=== PATIENT | male | born 1980 | race Caucasian/White ===

== ENCOUNTER → 2019-11-19 13:21 | Outpatient (CLI) | payer BC, SELFPAY | PROVIDERS: PCP Family Medicine; Referring Provider Nurse Practitioner Primary Care; Visit Provider Nurse Practitioner Primary Care | DX: Z03.818 Encounter for observation for suspected exposure to other biological agents ruled out (principal) | CPT/HCPCS: 87635; 87804; G2023; U0004 ==

== ENCOUNTER 2022-10-07 14:26 | Emergency (ER) | payer BC, SELFPAY ==
[2022-10-07 14:29] VITALS: BP 142/104; PULSE 76; RESP 14; TEMP 36.1; O2SAT 98; BMI 23.8
--- NOTE | 2022-10-07 14:55 | EDS_ITS ---
HPI HPI - Psych History of Present Illness Chief Complaint: Mental Health Narrative Narrative: 41-year-old male with no psychiatric history presenting with psychosis. He was referred to the ER by his PCP. Apparently on Friday he was at a concert [id number] and admits to drinking a lot of alcohol and taking ecstasy. He states that on his way home from this concert he started hearing music come from the radio that was evil. He was trying to block it out. He states when he arrived at home and walked into the house he can still hear the music. Initially it was coming from his bathroom pipes. He states that as he would walk around he would hear the music in different places. He called his family over to see if they could hear the sound, but he states that every time they showed up the music would stop. Patient states that he woke up at about 2 in the morning and saw all 3 beings. He thought there were either aliens or evil beings. He became very scared, and turned on the lights and these disappeared. He states at some point he let them back and by turning off the lights. He had severe that they were going to do some sort of surgery on his back and he was going to bleed to . He states he jumped up out of bed in his underwear and ran to the police station. He said he was in fear for his life. He presents with his brother and his [id number] who states that this is not his typical behavior. At some point today he feels that the beings did some kind of gentle procedure and inserted some kind of device into his shoulder that went down to his hand and he believes that this was something used to control his hand. He has not lost control of his hand. He is too afraid to go home. Patient denies any current drug or alcohol use. He is not homicidal or suicidal. [facility] Medical History Arthritis Contact with and (suspected) exposure to other viral communicable diseases URI (upper respiratory infection) Home Medications NK 07/10/22 [History Last Taken Unknown] Allergy/AdvReac Type Severity Reaction Status Date / Time No Known Allergies Allergy Verified 10/07/22 14:29 Social History Smoking Status: Never smoker alcohol intake: current ROS ROS ED Constitutional Constitutional ED: Denies chills or fever(s) Eyes Eyes: Denies change in vision ENT ENT ED: Denies rhinorrhea Cardiovascular Cardiovascular: Denies chest pain or palpitations Respiratory/Chest Respiratory/Chest: Denies cough or dyspnea Gastrointestinal Gastrointestinal: Denies abdominal pain or constipation Genitourinary Genitourinary ED: Denies dysuria or hematuria Musculoskeletal Musculoskeletal: Denies arthralgias or back pain Neurologic Neurologic: Denies headache(s) or paresthesias Psychiatric Psychiatric: Reports anxiety and other Details: Auditory and visual hallucinations ; Denies suicidal ideation or suicidal thoughts Endocrine Endocrinology: Denies polydipsia EXAM Physical Exam Const Vital Signs: 10/07/22 14:29 10/07/22 18:09 Temperature 97 F L Temperature Source Temporal Pulse Rate 76 Respiratory Rate 14 16 Blood Pressure 142/104 H Blood Pressure Mean 116 Pulse Ox 98 Oxygen Delivery Method Room Air Positive well nourished General Appearance ED: irritable; Negative for pallor HEENT Reports moist mucous membranes normocephalic Resp normal respiratory effort and clear to auscultation bilaterally Cardio Rate: regular rate Rhythm: regular rhythm Neuro oriented x3 and CN's II-XII intact bilaterally Sensorium / Orientation: alert and oriented to person Motor Exam: strength 5/5 throughout Psych denies homicidal ideation and denies suicidal ideation Appearance: bizarre Attitude: paranoid Activity / Motor Behavior: appropriate eye contact, psychomotor agitation, fidgetting and restless Mood & Affect: anxious, irritable and fearful Thought Process: disorganized and flight of ideas Thought Content: hallucination(s) Positive for auditory and visual Memory / Cognition: memory grossly intact Insight: poor Judgement: poor Skin General Skin Exam: Negative for jaundice or pallor MDM MDM MDM Narrative Medical decision making narrative: Patient presenting with kin, audible and visual hallucinations, paranoia. He has no history of psychiatric disease. 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 He was at a concert this last weekend. He admits to doing ecstasy. His urine drug screen is negative. CBC is unremarkable. BMP is also normal. EtOH negative. Discussed with clinical social work therapist and both the patient and she believe he needs to be placed. I do agree. I do believe it would be unsafe for him to go home. Patient started to get agitated. I had to give him Geodon. Patient was accepted at [facility]. He is medically clear at this time. Impression: 1. Acute psychosis Lab Data Labs: Laboratory Results - last 24 hr 10/07/22 10/07/22 10/07/22 14:58 15:04 15:04 WBC 10.3 RBC 5.02 Hgb 15.3 Hct 44.3 MCV 88.2 MCH 30.5 MCHC 34.5 RDW Std Deviation 39.4 RDW Coeff of Aldair 12.2 Plt Count 231 MPV 9.8 Immature Gran % (Auto) 0.400 Neut % (Auto) 77.0 H Lymph % (Auto) 11.3 L Vermillion % (Auto) 10.6 H Eos % (Auto) 0.3 Baso % (Auto) 0.4 Absolute Neuts (auto) 8.0 H Absolute Lymphs (auto) 1.17 Nucleated RBC % 0 Sodium Potassium Chloride Carbon Dioxide Anion Gap BUN Creatinine Estim Creat Clear Calc Est GFR (MDRD) Af Amer Est GFR (MDRD) Non-Af BUN/Creatinine Ratio Glucose Calcium Total Bilirubin AST ALT Alkaline Phosphatase Total Protein Albumin Globulin Albumin/Globulin Ratio Urine Opiates Screen NEGATIVE Urine Methadone Screen NEGATIVE Ur Barbiturates Screen NEGATIVE Ur Phencyclidine Scrn NEGATIVE Ur Amphetamines Screen NEGATIVE MDMA (Ecstasy) Screen NEGATIVE U Benzodiazepines Scrn NEGATIVE Urine Cocaine Screen NEGATIVE U Cannabinoids Screen NEGATIVE Ur Drug Screen Comment Ethyl Alcohol < 3.0 10/07/22 15:04 WBC RBC Hgb Hct MCV MCH MCHC RDW Std Deviation RDW Coeff of Aldair Plt Count MPV Immature Gran % (Auto) Neut % (Auto) Lymph % (Auto) Vermillion % (Auto) Eos % (Auto) Baso % (Auto) Absolute Neuts (auto) Absolute Lymphs (auto) Nucleated RBC % Sodium 140 Potassium 3.4 L Chloride 110 H Carbon Dioxide 21.0 Anion Gap 9 BUN 14 Creatinine 0.90 Estim Creat Clear Calc 112.65 Est GFR (MDRD) Af Amer 120 Est GFR (MDRD) Non-Af 99 BUN/Creatinine Ratio 15.6 Glucose 127 H Calcium 9.5 Total Bilirubin 0.90 AST 86 H ALT 66 H Alkaline Phosphatase 68 Total Protein 8.0 Albumin 4.2 Globulin 3.8 Albumin/Globulin Ratio 1.1 Urine Opiates Screen Urine Methadone Screen Ur Barbiturates Screen Ur Phencyclidine Scrn Ur Amphetamines Screen MDMA (Ecstasy) Screen U Benzodiazepines Scrn Urine Cocaine Screen U Cannabinoids Screen Ur Drug Screen Comment Ethyl Alcohol Discharge Plan Triage Chief Complaint: Mental Health ED Provider: Elias Acosta Dx/Rx/DC Orders Prescriptions: No Action NK Primary Care Provider: Carl Abernathy Referrals: Carl Abernathy MD [Primary Care Provider] -
--- NOTE | 2022-10-07 15:08 | ED.RN ---
Left message for Enzo [facility] [place]. Patient requesting to have someone pray with him.
[2022-10-07 15:17] LABS: Absolute Lymphocyte Count 1.17 X10^3/uL (0.83-4.51); Basophil# 0.04 X10^3/uL; Basophil% 0.4 % (0-1); Eosinophil# 0.03 X10^3/uL; Eosinophils% 0.3 % (0-5); Hematocrit 44.3 % (40-54); Hemoglobin 15.3 g/dL (13.0-16.5); Lymphocyte # 1.17 X10^3/ul (0.83-4.51); Lymphocyte % 11.3 % (19-41); Mean Corp Hgb Conc 34.5 g/dL (32-36); Mean Corpuscular Hgb 30.5 pg (27.0-32.0); Mean Corpuscular Volume 88.2 fL (80-94); Mean Platelet Vol. 9.8 fl (6.2-12.0); Monocyte% 10.6 % (0-10); NRBC Flagged by Analyzer 0 % (0-5); Neutrophil # 7.95 X10^3/uL (2.7-7.7); Platelet Count 231 K/mm3 (150-450); RBC Distribution Width CV 12.2 % (11.6-14.6); RBC Distribution Width SD 39.4 fl (35.1-43.9); Red Blood Count 5.02 M/mm3 (4.6-6.2); White Blood Count 10.3 K/mm3 (4.4-11.0)
[2022-10-07 15:43] LABS: Amphetamine Urine VISTA NEGATIVE (<1000 ng/mL); Barbiturate Urine VISTA NEGATIVE (< 200 ng/mL); Benzodiazepine Urine VISTA NEGATIVE (< 200 ng/mL); Cocaine Urine VISTA NEGATIVE (< 300 ng/mL); Ecstacy Urine VISTA NEGATIVE (< 500 ng/mL); Methadone Urine VISTA NEGATIVE (< 300 ng/mL); PCP Urine VISTA NEGATIVE (< 25 ng/mL); THC Urine VISTA NEGATIVE (< 50 ng/mL); Vista UDS pH Range 6
[2022-10-07 16:02] LABS: Alcohol, Blood (Medical)-Serum < 3.0 mg/dL
--- NOTE | 2022-10-07 16:19 | CHAPLAIN ---
Type of Pastoral Visit _x__ Initial Visit ___ Follow-up Visit ___ On-call Visit ___ General Patient Visit ___ Spiritual Assessment ___ Family Conference ___ Bereavement ___ Rapid Response ___ Code Blue ___ Other (describe below) Pastoral Care Referral From _x__ Patient ___ Family _x__ Nurse ___ Physician _x__ Shoe Salesperson ___ Unmanned Aircraft Systems Roboticist ___ Other (describe below) Sacrament/Intervention _x__ Active listening ___ Anointing ___ Yazidism ___ Bereavement ___ Communion _x__ Johanne exploration ___ ___ Life review _x__ Prayer ___ Reconciliation ___ Sacrament of Sick _x__ Supportive presence ___ Wedding ___ Other (describe below) Pastoral Comments patient requested visit of magazine worker; ED nurse called for visit to pt; pt presents with I need to be saved and all this has come to this day when I need to give my life completely to God and be saved; this magazine worker asks questions of pt concerning his meaning of words and understanding of his request; pt has brother and [id number] in room with him; pt answers questions and repeats his desire for prayer of salvation; affirming words and more explanation given along with prayer for salvation and personal healing was given; pt asks for more visits tomorrow; pt assured that if he is still in [facility] tomorrow that this magazine worker will do follow up visit; this magazine worker gave follow up report to RN and SW
[2022-10-07 16:26] LABS: ALB/GLOB Ratio 1.1 RATIO (0.9-2.4); AST(SGOT) 86 U/L (15-37); Alanine Aminotransfer ALT/SGPT 66 U/L (16-61); Albumin, Serum 4.2 g/dL (3.2-5.0); Alkaline Phosphatase 68 U/L (45-117); Anion Gap 9 (5-15); BUN 14 mg/dL (7-18); BUN/Creat Ratio 15.6 RATIO (10-20); Calcium,Total 9.5 mg/dL (8.5-10.1); Chloride 110 mmol/L (98-107); EST Glomerular Filtration Rate 99 mL/min (>60); Est Glom Filt Rate - Afr Amer 120 mL/min (>60); Estimated Creatinine Clearance 112.65 ml/min; Globulin 3.8 g/dL (2.2-4.2); Glucose 127 mg/dL (74-106); Potassium 3.4 mmol/L (3.5-5.1); Sodium Level 140 mmol/L (136-145)
--- NOTE | 2022-10-07 16:45 | CM.ED ---
Social Work Psychiatric Assessment Reason for Consult: mental health Informants: Patient, Ehsan Chief Complaint: Patient reports ?I am terrified for my soul, these forces are telling me the devil has me and has my soul but I am praying to be saved?. Demographics: Patient is a 41-year-old who identifies as a heterosexual male. Patient is single and lives alone in a home he owns. Patient?s highest level of education is some college and is currently employed at [employer]. Mental Health Treatment/ History: Patient reports no current mental health treatment. Patient reports he worked with a counselor in the past but didn?t feel it was helpful. Patient reports no known diagnosis but states ?I am sure there will be after I ?. SW inquired why patient feels he will , patient explained ?because I don?t think I can be treated, my situation can?t be treated. Patient repeating ?Tony save me, praclari Jimenez I am saved, save me?. Supports/ Resources: Patient identified his brother, [id number] and parents as his supports. Patient explained his parents are currently in [place] and he is ?afraid I?ll never see them again?. ? Triggers/ stressors: Patient reports work is sometimes a stressor and explained he didn?t always take good care of himself nor made good choices but ?I repent for my sins?. ? Legal Issues: None reported Coping Skills: Patient reports ?the wrong things, I have been chasing a false God but I pray I am saved?. ? Abuse History: ? Emotional Abuse: none reported ? Physical Abuse: none reported ? Sexual Abuse: none reported Substance Abuse Hx: Patient reports he drank daily 3-4 drinks and up to a couple bottles of wine. Patient reports he hasn?t drank since Friday. 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 ? Risk to Self/Others: ? Suicidal: Patient reports ?If I knew I was saved I would consider it because of the entities that are here might kill me?. ? Homicidal: none reported ? Violence: Patient reports he engaged in non-suicidal self-harm when he was younger but hasn?t engaged in years. ? Mental Status Exam: ? Orientation x3 ? Memory: good ? Appearance:? tearful ? Mood/ affect: bizarre ? Communication Pattern: responds to questions ? Thought Process: Patient reports he has been struggling with visual and audio hallucinations ?very recently?, unable to specify when it started. Patient reports he has see blubs of energy that are aliens or angels. Patient explained the other night he remembers they were trying to hurt him but when he escaped them, he didn?t have any injuries. Patient reports he sees the aliens more when the lights are off and instructed the SW to turn on and off the lights. Patient looked around the room but reports they did not appear. Patient reports he has been consistently hearing music but no one else can hear it. Patient reports he does not feel safe alone. ? General Intellectual Functioning: average Judgement: poor Insight: poor? Assessment: MEGHA met with MD Acosta, prior to assessment and reviewed symptoms and current concerns. reports a need for psychiatric placement explaining the patient hasn?t slept for days and ran to the police station in insufficient clothing based on the weather to report the aliens being in his house. ? MEGHA met with patient and introduced herself and role as [facility] Optical Store Manager. Patient was agreeable to speak to social work. SW requested patient?s family leave the room for the assessment, patient in agreement. SW then utilized open and close ended questions to gather information for patient?s assessment. Patient was receptive and cooperative. Patient frequently states ?Tony save me?, ?Lord save me and take me?, ?Tony save me, I am saved? during the interaction with SW. Patient reports active visual and audio hallucinations. Patient reports he isn?t having suicidal or homicidal thoughts but would hurt himself if he was saved to prevent the entities from hurting him. Patient reports the aliens are saying negative things but he tries not to listen to them. Patient reports he does not feel safe alone and needs help. When SW attempted to leave the room, patient tried to following stating he can?t be alone with the entities. ED staff present with patient while SW talks with patient?s family. SW met with patient?s wbjyko-sy-hko and brother who reports patient has not been acting himself. Patient?s family reports the patient made a statement that he would have to cut the fibers out of his arms as the aliens put them there. The patient had also made statements that he might have to end his life do to the entities. Patient?s family then returned to patient?s room. ? MEGHA updated care team regarding goal for psych placement. MEGHA requesting Filiberto Giraldo to meet with patient per patient's request. Enzo to follow up with patient. Plan: inpatient psychiatric hospitalization Neeta Hook SCRAP HOIST OPERATOR, LATRICE
[2022-10-07] MEDS: Ziprasidone IM 20 MG/ML VIAL IM (17:21)
--- NOTE | 2022-10-07 17:36 | ED.RN ---
PT STATES IF I GO TO SLEEP I'LL NEVER WAKE UP. ATTEMPTED TO REASSURE PT WITH [employer]. PT RESTING IN BED AT THIS TIME.
--- NOTE | 2022-10-07 17:53 | CM.ED ---
Addendum entered by Neeta Hook 10/07/22 19:58: Patient's brother requested to speak with SW. Patient's brother reporting concerns about accepting facility due to low star relating and reviews he read online. MEGHA explained patient was accepted and has transportation arranged to transport to [facility]. Patient's brother inquiring if he can provide transportation, SW explained that is not a possibility as patient is pink slipped to the facility and needs to arrive via ambulance to ensure safety. MEGHA validated patient's brother's concerns and explained she will consult with supervisor yard. MEGHA contacted MEGHA Arroyo to review concerns voiced by patient and patient's brother. MEGHA explained patient had been accepted by [facility], however, MEGHA cancelled referral as it was after patient was accepted to [facility]. MEGHA Arroyo encouraged to contact [facility] to inquire about his referral and offer that to patient as alternative option. MEGHA contacted [facility] and spoke with Gracia regarding patient's referral. Gracia requesting the referral be resent but provided with accepting: [facility], [address] [place] [address] N2N [id number]. [facility] requesting referral be resent and Copy of pink slip. MEGHA met with patient and patient's brother and explained [facility] was also able to accept patient and has higher online rating. Patient's brother inquiring if he can take patient or have him evaluated by alternative psychiatrist. MEGHA explained for patient's safety he is pink slipped to a facility to be evaluated by psychiatrist and will need to be taken via ambulance. Patient and patient's brother voiced understanding and in agreement to transfer to [facility]. MEGHA updated MD Acosta and community director. Referral and updated pink slip faxed to [facility]. corporate secretary to update transportation. MEGHA contacted [facility] to cancel referral for patient reporting patient's family is requesting a different facility. Plan: [facility] Neeta Hoko FEDERAL JAVA DEVELOPER, DRUG DEPARTMENT WORKER Addendum entered by Neeta Hook 10/07/22 19:09: MEGHA contacted by [facility] with acceptance: MD [facility], Dual diagnosis unit, N2N [id number]. [facility] requesting copy of pink slip and ETA. MEGHA updated MD Acosta, community director to arrange transportation. MEGHA faxed pink slip to [facility]. MEGHA updated patient and patient's brother of acceptance. Patient reports not wanting to go to [place] due to it being too far from home. SW explained they will assist with transportation. Patient reports understanding and inquired about ETA. SW explained community director to organizing transportation and will update patient when able. Plan: [facility] LATRICE Rogers Original Note: Social Work Note SW contacted [facility] to inquire about beds, beds available. SW contacted [facility] to inquire about beds, beds available. SW faxed referrals to [facility] and [facility]. Plan: referrals to [facility] and [facility] LATRICE Rogers
[2022-10-07 18:09] VITALS: RESP 16
--- NOTE | 2022-10-07 19:13 | NURSING ---
CALLED PHYSICIANS TO SET UP TRANSPORT TO [facility]-- ETA 4 HOURS --[id number]
--- NOTE | 2022-10-07 23:40 | ED.RN ---
Report called to [facility].
[2022-10-08 00:08] VITALS: BP 136/79; PULSE 74; RESP 16; O2SAT 98
--- NOTE | 2022-10-09 10:29 | CM.ED ---
Social Work Note MEGHA received a voicemail from patient's brother León Maldonado [phone] inquiring about the passcode to talk to his brother at [facility]. MEGHA contacted [facility] to explained patient's brother was attempting to contact the patient. MEGHA provided RN on patient's floor with patient's brother's name and number. The RN explained she would inform patient to contact patient's brother and provide the pass code. MEGHA contacted patient's brother and explained she contacted [facility] and provided the RN with his contact information to give to patient. MEGHA explained the pass code can only be given out by patient so this SW would not have been able to provide the pass code prior to patient leaving [facility]. Patient's brother reports he was able to speak with his brother but expressed his appreciation towards MEGHA. Neeta Hook MSW, LATRICE
== END 2022-10-08 00:23 | disposition short-term general hospital (02) ==
PROVIDERS: Emergency Provider Student in an Organized Health Care Education/Training Program; PCP Family Medicine; Visit Provider Student in an Organized Health Care Education/Training Program
DX: F23 Brief psychotic disorder (principal); Z20.822 Contact with and (suspected) exposure to COVID-19
CPT/HCPCS: 80053; 80307; 82077; 85025; 87811; 96372; 99285; J3486

== ENCOUNTER → 2023-06-25 | Outpatient (CLI) | payer OTHER, SELFPAY ==
[2023-06-25 17:01] LABS: HIV - WCH Non-Reactive (Nonreactive); Syphilis Antibodies Non-reactive
[2023-06-27 06:09] LABS: HEPATITIS B SURFACE AG Negative (Negative); Hep C Antibodies Non Reactive (Non Reactive); Hepatitis A IgM Antibody Negative (Negative); Hepatitis B Core AB IgM Negative (Negative)
== END | disposition home or self-care (01) ==
PROVIDERS: Referring Provider Nurse Practitioner Family; Visit Provider Nurse Practitioner Family
DX: Z72.51 High risk heterosexual behavior (principal)
CPT/HCPCS: 36415; 80074; 86703; 86780